=== PATIENT | female | born 1955 | race Native Hawaiian/Other Pacific Islander ===

== ENCOUNTER 2016-12-09 13:18 | Outpatient (CLI) | payer OTHER ==
[2016-12-09 14:11] LABS: PLATELET COUNT 199 K/uL (152-353)
[2016-12-09 14:30] LABS: POTASSIUM 4.6 mmol/L (3.6-5.2); SODIUM 133 mmol/L (136-145)
== END 2016-12-09 15:00 | disposition home or self-care (01) ==
LOC: LABW 13:18
PROVIDERS: Nurse Practitioner Family
DX: R10.11 Right upper quadrant pain (principal)
CPT/HCPCS: 36415; 80053; 82150; 83690; 85027; 86318

== ENCOUNTER 2019-12-13 15:39 | Outpatient (CLI) | payer BC, OTHER | END 2019-12-13 22:56 | disposition home or self-care (01) | LOC: LAB 15:39 | DX: U07.1 COVID-19 (principal); J32.9 Chronic sinusitis, unspecified; R05 Cough; R50.9 Fever, unspecified | CPT/HCPCS: 87635; G2023; U0002 ==

== ENCOUNTER 2020-01-14 09:24 | Outpatient (CLI) | payer BC, OTHER | END 2020-01-14 19:23 | disposition home or self-care (01) | LOC: RAD 09:24 | DX: R10.9 Unspecified abdominal pain (principal); R05 Cough; R53.83 Other fatigue | CPT/HCPCS: 81000; 87088 ==

== ENCOUNTER 2022-06-22 08:46 | Outpatient (CLI) | payer BC ==
[2022-06-22 09:26] LABS: PLATELET COUNT 223 K/uL (152-353)
[2022-06-22 09:43] LABS: POTASSIUM 3.8 mmol/L (3.6-5.2)
== END 2022-06-22 20:57 | disposition home or self-care (01) ==
LOC: LABW 08:46
PROVIDERS: ATTEND Nurse Practitioner Family
DX: R73.03 Prediabetes (principal); E78.49 Other hyperlipidemia; K21.9 Gastro-esophageal reflux disease without esophagitis; G40.909 Epilepsy, unspecified, not intractable, without status epilepticus; R10.13 Epigastric pain
CPT/HCPCS: 36415; 80053; 80061; 82306; 83036; 84439; 84443; 85027